=== PATIENT | female | born 1955 | race African-American/Black ===

== ENCOUNTER 2020-02-10 15:01 | Emergency (ER) | payer SELFPAY ==
[~2020-02-10] VITALS: Ht 160 cm; Wt 101.0 kg
[2020-02-10] MEDS ORDERED: KETOROLAC 30MG/ML VIAL IM ONE (15:45)
[2020-02-10 16:30] VITALS: BP 118/65
== END 2020-02-10 16:31 | disposition home or self-care (01) ==
LOC: ER 15:01
DX: S93.102A Unspecified subluxation of left toe(s), initial encounter (principal); E11.9 Type 2 diabetes mellitus without complications; I10 Essential (primary) hypertension; Z88.2 Allergy status to sulfonamides; X50.1XXA Overexertion from prolonged static or awkward postures, initial encounter; Y93.01 Activity, walking, marching and hiking; Y92.89 Other specified places as the place of occurrence of the external cause; Y99.8 Other external cause status
CPT/HCPCS: 73610; 96372; 99283; J1885

== ENCOUNTER 2024-04-03 10:06 | Emergency (ER) | payer BC, MEDICAID ==
[~2024-04-03] VITALS: Ht 167.6 cm; Wt 95.0 kg
[2024-04-03 10:15] VITALS: O2SAT 99
[2024-04-03] MEDS: ACETAMINOPHEN 325MG TABLET PO ONE (10:45)
[2024-04-03] MEDS ORDERED: NAPR-1176 MT (11:46)
[2024-04-03 12:25] VITALS: BP 142/87; PULSE 85; RESP 18; TEMP 97.9
== END 2024-04-03 12:53 | disposition home or self-care (01) ==
LOC: ER 10:06
DX: M25.572 Pain in left ankle and joints of left foot (principal); E11.9 Type 2 diabetes mellitus without complications; I10 Essential (primary) hypertension; Z88.2 Allergy status to sulfonamides
CPT/HCPCS: 73610; 99283